=== PATIENT | male | born 1975 | race Hispanic/Latino ===

== ENCOUNTER 2019-09-13 09:51 | Emergency (ER) | payer BC ==
[2019-09-13 11:08] LABS: Basophils % (Auto) 0.4 % (0.0-1.8); Eosinophils # (Auto) 0.2 K/mm3 (0.0-0.4); Eosinophils % (Auto) 1.7 % (0.0-4.3); Hematocrit 44.1 % (35.5-45.6); Hemoglobin 14.7 gm/dl (11.8-15.2); Lymphocytes # (Auto) 1.8 K/mm3 (1.2-5.4); Lymphocytes % (Auto) 19.9 % (13.4-35.0); Mean Corpuscular HGB Conc 33 % (32-34); Mean Corpuscular Volume 90 fl (84-94); Monocytes # (Auto) 0.6 K/mm3 (0.0-0.8); Monocytes % (Auto) 6.2 % (0.0-7.3); Platelet Count 247 K/mm3 (140-440); Red Blood Count 4.88 M/mm3 (3.65-5.03); Red Cell Distribution Width 13.6 % (13.2-15.2)
[2019-09-13 11:27] LABS: BUN/Creatinine Ratio 21; Blood Urea Nitrogen 17 mg/dL (9-20); Calcium 9.1 mg/dL (8.4-10.2); Hemolysis Index 8
--- NOTE | 2019-09-13 13:13 | Emergency Department Report ---
ED Syncope HPI - General Chief Complaint: Syncope Stated Complaint: SYNCOPE LOW BP 67/43 Time Seen by Provider: 09/13/19 10:31 - History of Present Illness Initial Comments: Patient is a 44-year-old female who is presenting with a syncopal episode. Patient states he woke up fine this morning. Patient was at work and talking with his boss when he stated that he started feeling very weak and lightheaded has some tunnel vision and then the next thing he remembers is that he woke up staring up at the ceiling. Patient denies any headache chest pain shortness of breath fevers chills nausea vomiting. Patient is on blood pressure medications and took it this morning. On fur designer arrival patient blood pressure was 67/43 however it is improved after minimal amount of IV fluids. Patient states he is asymptomatic at this time. - Related Data Allergies/Adverse Reactions: Allergies No Known Allergies Allergy (Verified 09/13/19 10:22) ED Review of Systems ROS: Stated complaint: SYNCOPE LOW BP 67/43 Other details as noted in HPI Comment: All other systems reviewed and negative ED Past Medical Hx - Past Medical History Previous Medical History?: Yes Hx Hypertension: Yes - Surgical History Past Surgical History?: Yes Hx Appendectomy: Yes - Social History Smoking Status: Former Smoker Substance Use Type: None ED Physical Exam - General Limitations: No Limitations General appearance: alert, in no apparent distress - Head Head exam: Present: atraumatic, normocephalic - Eye Eye exam: Present: normal appearance - ENT ENT exam: Present: mucous membranes moist - Neck Neck exam: Present: normal inspection - Respiratory Respiratory exam: Present: normal lung sounds bilaterally. Absent: respiratory distress, wheezes, rales, rhonchi - Cardiovascular Cardiovascular Exam: Present: regular rate, normal rhythm, normal heart sounds. Absent: systolic murmur, diastolic murmur, rubs, gallop - GI/Abdominal GI/Abdominal exam: Present: soft, normal bowel sounds. Absent: distended, tenderness, guarding, rebound - Rectal Rectal exam: Present: deferred - Extremities Exam Extremities exam: Present: normal inspection - Back Exam Back exam: Present: normal inspection - Neurological Exam Neurological exam: Present: alert, oriented X3 - Psychiatric Psychiatric exam: Present: normal affect, normal mood - Skin Skin exam: Present: warm, dry, intact, normal color. Absent: rash ED Course Vital Signs 09/13/19 09/13/19 09/13/19 10:18 10:22 10:33 Temperature 98.4 F Pulse Rate 80 Respiratory 15 15 Rate Blood Pressure Blood Pressure [Right] O2 Sat by Pulse 99 98 Oximetry 09/13/19 09/13/19 09/13/19 10:34 10:45 11:00 Temperature Pulse Rate 73 75 77 Respiratory 17 16 16 Rate Blood Pressure 111/67 109/66 Blood Pressure 114/65 [Right] O2 Sat by Pulse 98 99 Oximetry 09/13/19 09/13/19 09/13/19 11:15 11:30 11:45 Temperature Pulse Rate 77 83 78 Respiratory 13 20 20 Rate Blood Pressure 113/69 115/73 123/71 Blood Pressure [Right] O2 Sat by Pulse 100 Oximetry 09/13/19 09/13/19 09/13/19 12:00 12:15 12:34 Temperature Pulse Rate 79 83 78 Respiratory 22 13 14 Rate Blood Pressure 125/68 126/68 Blood Pressure 121/71 [Right] O2 Sat by Pulse 98 97 99 Oximetry ED Medical Decision Making - Lab Data Result diagrams: 09/13/19 10:45 09/13/19 10:45 - Medical Decision Making Patient is a 44-year-old male presents status post a syncopal episode. Patient likely a vasovagal reaction. Patient states he has had syncopal episodes in the past but never had follow-up. Patient is stable at this time and on standing he is not exhibiting any dizziness. Patient will be discharged home with follow-up primary care. Critical care attestation.: If time is entered above; I have spent that time in minutes in the direct care of this critically ill patient, excluding procedure time. ED Disposition Clinical Impression: Vasovagal syncope Disposition: DC-01 TO HOME OR SELFCARE Is pt being admited?: No Does the pt Need Aspirin: No Condition: Stable Instructions: Syncope (ED) Referrals: FERMÍN CASTANON MD [Staff Physician] - 3-5 Days Time of Disposition: 13:12
[2019-09-13 13:56] VITALS: BP 112/66
== END 2019-09-13 13:56 | disposition home or self-care (01) ==
LOC: ED 09:51
DX: R55 Syncope and collapse (principal); I10 Essential (primary) hypertension; Z90.49 Acquired absence of other specified parts of digestive tract; Z87.891 Personal history of nicotine dependence
CPT/HCPCS: 36415; 80048; 85025; 99284